=== PATIENT | female | born 1985 | race American Indian/Alaskan Native ===

== ENCOUNTER 2017-07-01 10:44 | Inpatient (IN) | payer OTHER, MEDICAID ==
--- NOTE | 2017-06-29 10:55 | History and Physical Report ---
History of Present Illness Date of examination: 06/29/17 Chief complaint: pelvic pain, dyspareunia History of present illness: Pt is a 31 year old African0-[place] female who presents for definitive management of pelvic pain and dyspareunia for the past 6 years with minimal improvement with medical therapy. 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 History: abnormal PAP smear Family/Genetic History: none Social history: Medications and Allergies Allergies Allergy/AdvReac Type Severity Reaction Status Date / Time Penicillins Allergy SOB, Rash Verified 06/24/17 15:11 Home Medications Medication Instructions Recorded Confirmed Last Taken Type Triamter/Hctz 75-50 mg [Maxzide 1 tab PO QDAY 06/24/17 06/24/17 Unknown History 75-50 mg] Review of Systems All systems: negative - Physical Exam Breasts: Positive: deferred Cardiovascular: Regular rate Lungs: Positive: Clear to auscultation Abdomen: Positive: soft (obese) Uterus: Positive: normal size Extremities: Positive: normal Results All other labs normal. Assessment and Plan A: Chronic Pelvic Pain Dyspareunia Obesity Hypertension P: Proceed with Laparoscopic-assisted vaginal hysterectomy, bilateral salpingectomy , possible oophorectomy and other indicated procedures.
--- NOTE | 2017-06-29 11:27 | Anesthesia Consultation ---
Anesthesia Consult and Med Hx Date of service: 06/29/17 - Airway Anesthetic Teeth Evaluation: Good ROM Head & Neck: Adequate Mental/Hyoid Distance: Adequate Mallampati Class: Class II Intubation Access Assessment: Probably Good - Pulmonary Exam CTA: Yes - Cardiac Exam Cardiac Exam: RRR - Pre-Operative Health Status ASA Pre-Surgery Classification: ASA2 Proposed Anesthetic Plan: General - Cardiovascular System Hx Hypertension: Yes (x 2 yrs) - Central Nervous System Hx Psychiatric Problems: No - Other Systems Hx Alcohol Use: Yes (wine daily) Hx Cancer: No
[2017-06-29 12:29] LABS: Basophils % (Auto) 0.9 % (0.0-1.8); Eosinophils % (Auto) 0.4 % (0.0-4.3); Hemoglobin 14.2 gm/dl (10.1-14.3); Mean Corpuscular HGB Conc 33 % (30-34); Mean Corpuscular Hemoglobin 28 pg (28-32); Mean Corpuscular Volume 84 fl (79-97); Platelet Count 232 K/mm3 (140-440); Red Cell Distribution Width 13.8 % (13.2-15.2); White Blood Count 8.8 K/mm3 (4.5-11.0)
[2017-06-29 12:39] LABS: Anion Gap 21 mmol/L; BUN/Creatinine Ratio 17; Blood Urea Nitrogen 20 mg/dL (7-17); Calcium 9.8 mg/dL (8.4-10.2); Carbon Dioxide 25 mmol/L (22-30); Chloride 98.6 mmol/L (98-107); Glucose 85 mg/dL (65-100); Potassium 4.2 mmol/L (3.6-5.0); Sodium 140 mmol/L (137-145)
[~2017-07-01 10:44] MED LIST: CLEOCIN 600 MG/50 mL 600 MG/50 ML BAG IV SCH; GARAMYCIN 120 MG in NACL 0.9% 100 ML IV SCH; PEPCID PO NR; VERSED IV NR
[2017-07-01] MEDS ORDERED: LACTATED RINGERS 1,000 ML IV SCH ×2 (11:00→13:00)
[2017-07-01] MEDS ORDERED: VERSED IV PRN (12:24)
[2017-07-01] MEDS ORDERED: PEPCID PO NR (13:00)
[2017-07-01] MEDS ORDERED: GARAMYCIN/NS 120MG/100ML 120 MG/100 ML BAG IV SCH (14:00)
[2017-07-01] MEDS ORDERED: MARCAINE 0.5% 30 ML INFILTRATI ONE (15:06)
[2017-07-01] MEDS ORDERED: SUBLIMAZE ONE (16:29)
[2017-07-01] MEDS ORDERED: DIPRIVAN 10 MG/ML IV ONE (16:29)
[2017-07-01] MEDS ORDERED: ZEMURON IV ONE ×2 (16:31→19:04)
[2017-07-01] MEDS ORDERED: XYLOCAINE MPF 2% ONE (16:31)
[2017-07-01] MEDS ORDERED: DECADRON ONE (17:13)
[2017-07-01] MEDS ORDERED: NACL 0.9% 1000 ML 1,000 ML ONE (17:20)
[2017-07-01] MEDS ORDERED: DILAUDID ONE (17:40)
[2017-07-01] MEDS ORDERED: LACTATED RINGERS 1,000 ML ONE ×2 (17:45→19:18)
[2017-07-01] MEDS ORDERED: NACL 0.9% 1000 ML IR ONE (18:11)
[2017-07-01] MEDS ORDERED: NACL 0.9% IR ONE (18:11)
[2017-07-01] MEDS ORDERED: ZOFRAN ONE (19:06)
[2017-07-01] MEDS ORDERED: ROBINUL ONE (19:43)
[2017-07-01] MEDS ORDERED: NEOSTIGMINE ONE (19:44)
[2017-07-01] MEDS ORDERED: TORADOL ONE (19:57)
--- NOTE | 2017-07-01 20:03 | Operative Report ---
Operative Report Operative Report: Date of procedure: July 01, 2017 Preoperative Diagnosis: 1) Chronic Pelvic pain 2) Dyspareunia Postoperative diagnosis: Same Surgeon: Shannan Browne MD Mop Maker: Radha Rothman MD Anesthesia: GETA Procedure: Laparoscopic-assisted vaginal hysterectomy, bilateral salpingectomy Findings: 1) Small anteverted mobile uterus 2) Normal appearing ovaries and fallopian tubes EBL: 400 mL IVF: 2500 mL Urine output: 150 mL, clear at the end of the procedure Specimen: uterus, cervix, fallopian tubes to pathology Complications: None. Counts correct x 2 Drains: Simon to gravity Vaginal pack in vagina Disposition: Stable to PACU Indication for procedure: Pt is a 31 year old -Citizen Of [place] female who presents for definitive management of pelvic pain and dyspareunia Operation in detail: After the risks, benefits, alternatives and complications were explained to the patient, she gave informed consent for the procedure. She was subsequently taken to the operating room with her IV noted to be running well and placed in the dorsal supine position. SCDs were noted to be in place and functioning. General anesthesia was then induced without difficulty. The patient was then placed in the dorsal lithotomy position with Teofilo stirrups. Exam under anesthesia revealed a small mobile uterus. The patient was then prepped and draped in a normal sterile fashion. A timeout was then performed. A simon catheter was placed and the bladder was emptied. A bivalve speculum was placed into the vagina. A single-tooth tenaculum was then placed on the anterior lip of the cervix for traction. The uterus was sounded to 7 cm. Stay sutures of 0-Vicryl were placed at 3 o'clock and 9 o'clock positions and tagged with hemostats. A large V-Care uterine manipulator was introduced without difficulty. A lap was placed into the vagina. The surgeon's gloves were changed. Two towel clamps were applied to the periumbilical skin for manual elevation of the abdomen. A small horizontal incision was made 4 cm above the umbilicus. A long Veress needle was introduced into the peritoneal cavity at a straight angle without difficulty. A saline drop test was performed to confirm intraperitoneal placement. Pneumoperitoneum was established with carbon dioxide gas to a pressure of 15 mm Hg. A 10 mm long trocar was inserted into the abdomen under direct visualization. Intraabominal placement was confirmed with the laparoscope. An intraabdominal survey revealed pelvic anatomy was as noted above. Two 10 mm trocars were inserted in the bilateral lower quadrants 6 cm from the midline under direct laparoscopic visualization. Trendelenberg position was obtained to facilitate movement of the bowel and omentum out of the pelvis. The uterus was elevated from the pelvis with a uterine manipulator. Using a 10 mm Ligasure device, the fallopian tubes were bilaterally excised. Next, the broad, utero-ovarian and round ligaments on the right side were sequentially transected with the Ligasure device until the uterine artery was exposed. The same procedure was repeated on the left side. The vesico-uterine peritoneum was opened with monopolar scissors and the bladder was dissected off the lower uterine segment and upper vagina. With the V-Care pushing into the pelvis, the cervico-vaginal junction was delineated by the colpotomy ring, which was apparent through the tissue. The vagina was entered posteriorly with the monopolar scissors and incised circumferentially along the cervico-vaginal junction. During this portion of the vessel, there was additional bleeding from the vaginal vessels that was controlled with the Ligasure. The uterus was then delivered through the vagina and sent to pathology. Attention was then turned to the vaginal portion of the case. The patient was placed in high dorsal lithotomy position. The vaginal cuff was grasped with Allis clamps then reapproximated with two sutures of 0-Vicryl suture both used in a running locked fashion starting from each vaginal apex and moving towards the midline. A vaginal pack was placed. The surgeon's gloves were changed. The pnuemoperitoneum was reestablished and the pelvis was inspected with no active bleeding noted. Artista AH was sprayed over the vaginal cuff and pedicles. All instruments were removed from the abdomen. The fascial defects of the three trocar sites were closed with a Pavan-Murphy device using 0- Vicryl. All three skin incisions were injected with 0.5% Marcaine then reapproximated with 4-0 Vicryl in a subcuticular fashion. The incisions were then covered with steri-strips, telfa and tegaderm dressings. At this time the procedure was ended. The patient was returned to the dorsal supine position and extubated without difficulty. She was subsequently taken to the PACU in stable condition. All counts were correct x 3.
--- NOTE | 2017-07-01 20:03 | Post Operative Note ---
Date of procedure: 07/01/17 Pre-op diagnosis: Chronic Pelvic Pain Post-op diagnosis: same Findings: Small anteverted mobile uterus Normal appearing ovaries and tubes Procedure: Laparoscopic-assisted vaginal hysterectomy Bilateral salpingectomy Anesthesia: ANALILIA Surgeon: MARYELLEN MORATAYA Business Analysis Analyst: JAMES CARD Estimated blood loss: other (500 mL) Pathology: list (uterus, cervix, fallopian tubes) Specimen disposition: to lab Condition: stable Disposition: PACU
[2017-07-01] MEDS ORDERED: NARCAN 0.4 MG/1 ML IV PRN (20:32)
[2017-07-01] MEDS: DILAUDID IV PRN ×3 (20:43→21:50)
[2017-07-01] MEDS ORDERED: MORPHINE PCA 30MG/30ML IV SCH (21:00)
[2017-07-02] MEDS ORDERED: ZOFRAN IV PRN ×2 (00:15)
[2017-07-02] MEDS ORDERED: BENADRYL IV PRN (00:15)
[2017-07-02] MEDS ORDERED: DULCOLAX PR PRN (00:15)
[2017-07-02] MEDS ORDERED: NARCAN 0.4 MG/1 ML IV PRN (00:15)
[2017-07-02] MEDS ORDERED: MILK OF MAGNESIA PO PRN (00:15)
[2017-07-02] MEDS ORDERED: D5LR 1,000 ML IV SCH (00:15)
[2017-07-02] MEDS: CLEOCIN 600 MG/50 mL 600 MG/50 ML BAG IV SCH ×2 (02:54→12:24)
[2017-07-02] MEDS: TORADOL IV SCH ×3 (02:56→18:19)
[2017-07-02] MEDS: GARAMYCIN/NS 80 MG/100 ML 100 ML IV SCH ×2 (05:11→13:05)
[2017-07-02 05:29] LABS: Hematocrit 33.3 % (30.3-42.9); Hemoglobin 10.8 gm/dl (10.1-14.3)
[2017-07-02 06:07] LABS: BUN/Creatinine Ratio 16; Blood Urea Nitrogen 19 mg/dL (7-17); Calcium 8.5 mg/dL (8.4-10.2); Carbon Dioxide 19 mmol/L (22-30); Chloride 95.8 mmol/L (98-107); Glucose 147 mg/dL (65-100); Sodium 134 mmol/L (137-145)
[2017-07-02 06:20] LABS: Anion Gap 25 mmol/L
[2017-07-02 06:21] LABS: Potassium 5.4 mmol/L (3.6-5.0)
--- NOTE | 2017-07-02 08:56 | Progress Note ---
Assessment and Plan A: POD#1 s/p LAVH/Bilateral Salpingectomy P: Routine postoperative care. Subjective - Subjective Date of service: 07/02/17 Principal diagnosis: POD#1 s/p LAVH/bilateral salpingectomy Interval history: Pt without complaints Patient reports: appetite normal, voiding normally, pain well controlled, ambulating normally Objective - Vital Signs Latest vital signs: Vital Signs Temp Pulse Resp BP Pulse Ox 07/02/17 03:37 98.8 F 117 H 20 138/90 99 07/02/17 03:14 97.6 F 78 16 97/48 98 07/01/17 22:50 97.8 F 79 16 91/48 95 07/01/17 22:49 97.8 F 81 16 91/48 95 07/01/17 22:25 84 15 98/56 98 07/01/17 22:20 14 07/01/17 22:15 97.5 F L 81 11 L 99/50 97 07/01/17 22:00 87 12 97/55 96 07/01/17 21:50 12 07/01/17 21:45 79 12 95/47 95 07/01/17 21:30 79 13 93/51 95 07/01/17 21:23 15 07/01/17 21:15 78 11 L 97/59 96 07/01/17 21:13 14 07/01/17 21:00 77 12 101/55 95 07/01/17 20:45 71 11 L 111/53 95 07/01/17 20:43 12 07/01/17 20:30 79 14 111/68 99 07/01/17 20:15 76 13 113/68 100 07/01/17 20:10 79 13 116/65 100 07/01/17 20:05 97.5 F L 86 12 109/65 99 07/01/17 11:54 97.8 F 91 H 20 127/81 100 07/01/17 11:45 97.8 F 91 H 20 127/81 100 Intake and Output 07/01/17 07/02/17 07/02/17 22:59 06:59 14:59 Intake Total 1400 0 Output Total 150 300 Balance 1250 -300 Intake: IV 1400 Oral 0 Output: Urine 150 300 Indwelling Catheter 300 Other: Total, Intake Amount 0 Total, Output Amount 300 Voiding Method Indwelling Catheter # Bowel Movements 0 Weight 91.172 kg - Exam Breasts: Present: deferred Cardiovascular: Present: Regular rate Lungs: Present: Clear to auscultation Abdomen: Present: soft, abnormal bowel sounds (hypoactive ) Extremities: Present: normal Incision: Present: normal - Labs Labs: Abnormal lab results 07/02/17 Range/Units 04:17 Sodium 134 L (137-145) mmol/L Potassium 5.4 H D (3.6-5.0) mmol/L Chloride 95.8 L (98-107) mmol/L Carbon Dioxide 19 L (22-30) mmol/L BUN 19 H (7-17) mg/dL Glucose 147 H (65-100) mg/dL
[2017-07-02] MEDS ORDERED: MORPHINE IV PRN (09:00)
[2017-07-02] MEDS: PERCOCET 5/325 PO PRN (10:14)
[2017-07-03] MEDS: TORADOL IV SCH ×2 (01:00→07:00)
[2017-07-03 05:40] LABS: Hematocrit 30.7 % (30.3-42.9); Hemoglobin 10.1 gm/dl (10.1-14.3)
--- NOTE | 2017-07-03 08:22 | Progress Note ---
Assessment and Plan A: POD#2 s/p LAVH/Bilateral Salpingectomy P: Routine postoperative care. Discharge today with follow up in [address] Browne Subjective - Subjective Date of service: 07/03/17 Principal diagnosis: POD#2 s/p LAVH/bilateral salpingectomy Interval history: No overnight events. Pt would like to go home. Patient reports: appetite normal, voiding normally, pain well controlled, flatus , ambulating normally, no bowel movement, no nauseated Objective - Vital Signs Latest vital signs: Vital Signs Temp Pulse Resp BP Pulse Ox 07/03/17 01:04 97 H 97 07/02/17 16:42 97.7 F 84 18 111/56 99 07/02/17 11:44 98.4 F 80 20 111/57 99 07/02/17 08:48 97.2 F L 84 16 102/56 98 Intake and Output 07/02/17 07/03/17 07/03/17 22:59 06:59 14:59 Intake Total 360 560 Output Total 900 Balance -540 560 Intake: Oral 360 560 Output: Urine 900 Void 900 Other: Total, Intake Amount 360 560 Total, Output Amount 350 Voiding Method Toilet Diaper # Voids Void 4 # Bowel Movements 0 - Exam Breasts: Present: deferred Cardiovascular: Present: Regular rate Lungs: Present: Clear to auscultation Abdomen: Present: soft (obese ) Extremities: Present: normal Incision: Present: dressed
--- NOTE | 2017-07-03 08:27 | Discharge Summary ---
Providers - Providers Date of Admission: 07/01/17 22:14 Date of discharge: 07/03/17 Attending physician: MARYELLEN BROWNE Primary care physician: JESS SYKES Hospitalization Reason for admission: other (hysterectomy ) Procedure details: Please see operative note. Incision: intact Other procedures: none complications: none Hospital course: Patient underwent laparoscopic-assisted vaginal hysterectomy and bilateral salpingectomy which she tolerated well. Her post operative course is uncomplicated and she met discharge criteria on postoperative day #2. She'll follow up in the office in [address] Browne. Condition at discharge: Stable Disposition: - TO HOME OR SELFCARE - Discharge Diagnoses (1) Obesity Status: Acute Qualifiers: Body mass index: BMI 34.0-34.9 (2) Chronic pelvic pain in female Status: Acute (3) Dyspareunia Status: Acute (4) S/P hysterectomy Status: Acute Plan - Discharge Medications Prescriptions: Ferrous Sulfate [Feosol 325 MG tab] 325 mg PO BID #60 tablet Ibuprofen [Motrin] 800 mg PO Q8HR PRN #30 tablet PRN Reason: Pain oxyCODONE /ACETAMINOPHEN [Percocet 5/325] 1 tab PO Q6HR PRN #30 tablet PRN Reason: Pain - Provider Discharge Summary Activity: routine, no sex for 6 weeks, no heavy lifting 4 weeks, no strenuous exercise Diet: routine Instructions: routine Additional instructions: [] Smoking cessation referral if applicable(refer to patient education folder for contact #) [] Refer to [facility] Booklet Call your doctor immediately for: * Fever > 100.5 * Heavy vaginal bleeding ( >1 pad per hour) * Severe persistent headache * Shortness of breath * Reddened, hot, painful area to leg or breast * Drainage or odor from incision. * Keep incision clean and dry at all times and follow doctor's instructions regarding bathing/showering - Follow up plan Follow up: JESS SYKES PA [Primary Care Provider] - 7 Days MARYELLEN BROWNE MD [Staff Physician] - 07/15/17 (incision check- please call office for appt )
[2017-07-03 09:20] VITALS: BP 105/53
[2017-07-03] MEDS: PERCOCET 5/325 PO PRN (09:31)
--- NOTE | 2017-07-10 10:57 | Query-Anemia ---
Swathi Rice_Pavan Date:___07/10/17 Casing Runner/CDS:____Ygestela / Mychal Phone#:___[phone] Exercise your independent professional judgment when responding to this query. Questions asked do not imply a particular answer is desired or expected. We greatly appreciate your clarification on this issue. Clinical Documentation States: 31 year old female was admitted on 07/01/17 The operative report (Dr. Browne 07/01/17) states " Preoperative Diagnosis: 1) Chronic Pelvic pain 2) Dyspareunia Postoperative diagnosis: Same Procedure: Laparoscopic-assisted vaginal hysterectomy, bilateral salpingectomy Findings: 1) Small anteverted mobile uterus 2) Normal appearing ovaries and fallopian tubes EBL: 400 mL " Clinical Findings Show: 06/29/17 07/02/17 07/03/17 Hct: 43.0 33.3 30.7 Etiology: [ ] Precipitous Drop in Hematocrit [ ] Anemia due to acute blood loss [ ] Anemia due to chronic blood loss [ ] Anemia secondary to ESRD [ ] Anemia secondary to neoplastic disease [ ] Iron deficiency anemia due to malabsorption [ ] GI Bleed from: [ ] Anemia of chronic disease ,Other: [ ] Precipitous Drop in Hemoglobin [ X] Other: Hemoconcentration preoperatively. [ ] Unable to determine [ ] Comment/Explanation: Present on Admission: [ X] Yes (Y) [ ] Clinically undeterminable (W) [ ] No (N) Please also document response in your Progress Notes and/or Discharge Summary and indicate if the condition was present on admission. AAROND
== END 2017-07-03 13:00 | disposition home or self-care (01) | DRG 743 ==
LOC: OR 10:44 → OB 22:14
PROVIDERS: ADMIT Obstetrics & Gynecology; ATTEND Obstetrics & Gynecology
PROC: 0UT9FZZ Resection of Uterus, Via Natural or Artificial Opening With Percutaneous Endoscopic Assistance (ICD-10-PCS; principal; 2017-07-01)
PROC: 0UB74ZZ Excision of Bilateral Fallopian Tubes, Percutaneous Endoscopic Approach (ICD-10-PCS; 2017-07-01)
DX: N94.10 Unspecified dyspareunia (principal); Z90.710 Acquired absence of both cervix and uterus; I10 Essential (primary) hypertension; E66.9 Obesity, unspecified; Z68.34 Body mass index [BMI] 34.0-34.9, adult
CPT/HCPCS: 36415; 80048; 84703; 85014; 85018; 85025; 86850; 86900; 86901; 88307; J1100; J1170; J1580; J1885; J2250; J2270; J2405; J2704; J2710; J3010; J7030; J7120; J7121